=== PATIENT | female | born 1970 | race Caucasian/White ===

== ENCOUNTER → 2018-02-04 | Day surgery (SDC) | payer SELFPAY | PROVIDERS: PCP Family Medicine ==

== ENCOUNTER 2018-10-05 14:36 | Observation (INO) | payer SELFPAY ==
[2018-09-24 15:35] VITALS: BMI 29.7
[2018-10-04] VITALS (15 sets, daily range): BP systolic 78–142; BP diastolic 40–86; PULSE 60–78; RESP 8–17; TEMP 35.7–36.6; O2SAT 92–100; BMI 29.7
--- NOTE | 2018-10-04 | PATH_ITS ---
[facility] Accession Number: [id number] . 01 Material submitted: . UTERUS AND CERVIX . 02 Diagnosis: Uterus and Cervix, Hysterectomy: 1. Inactive/noncycling endometrium with no evidence of hyperplasia. 2. Cervix and myometrium with no diagnostic abnormality. 3. No evidence of neoplasia. MRV/10/06/2018 . 02 Electronically signed: . Lisa Leyva MD, Pathologist NPI- [id number] . 01 Gross description: . Received in formalin, labeled uterus and cervix, is a uterus (61 grams, 3.2 cm AP, 8.2 cm SI, 3.8 cm ML). The ovaries and fallopian tubes are absent. The cervix (2.0 cm AP, 3.2 cm ML) has a vaginal cuff (up to 1.8 cm in depth), transverse os, and patent endocervical canal. The endometrium (average thickness-0.1 cm) is arias-pink, smooth and flat. The myometrium (thickness-1.5 cm) is arias-white and unremarkable. The serosa is arias smooth and shiny. Section code: (A1) anterior cervix; (A2) posterior cervix; (A3, A4) anterior endomyometrium; (A5, A6) posterior endomyometrium. ([id number]) /MRV . 02 Pathologist provided ICD-10: N81.4 . 02 CPT . 207046 Performed at: 01 [facility] [address] [id number] MD Mekhi Jeff MD Phone: [phone] Performed at: 02 [facility] [address] [place], [place] [id number] MD Lisa Leyva MD Phone: [phone]
[2018-10-04] MEDS: LACTATED RINGERS 1,000 ML 42 ML IV (13:40)
[2018-10-04] MEDS: ONDANSETRON 4 MG/2 ML INJ IV ×2 (13:41→19:28)
[2018-10-04] MEDS: fentaNYL 100 MCG/2 ML INJ 50 MCG IV ×2 (13:41→13:46)
[2018-10-04] MEDS: SCOPOLAMINE 1 PATCH TOP (14:15)
[2018-10-04] MEDS: CEFOTETAN 2 GM/50 ML PIGGYBACK IV (15:45)
--- NOTE | 2018-10-04 16:16 | SUR.OPER ---
Lithotomy on padded OR bed, head on pillow, arms secured on padded arm boards at <90 degrees abduction. Legs secured in padded yellow fins stirrups.
[2018-10-04] MEDS: BUPIVACAINE 0.25% W/ EPI VIAL 50 ML INJ (16:26)
[2018-10-04] MEDS: BUPIVACAINE 0.5% W/ EPI (PF) VIAL 30 ML INJ (16:26)
--- NOTE | 2018-10-04 17:27 | PM.GYNOP.1 ---
Operative Date/Time/Diagnoses Date of procedure: 10/04/18 Time of procedure: 17:27 Pre-op diagnosis: Menorrhagia, uterine descensus, stress urinary incontinence Post-op diagnosis: same Procedure: Procedures Operation Date: 10/04/18 15:30 Actual Procedures Side Surgeon p Vaginal Hysterectomy with TVT Sheldon Patel MD s Tensionless Vaginal Tape-Suspension Sheldon Patel MD Indications: Menorrhagia, stress urinary incontinence, uterine descensus Surgeon: Sheldon Patel Textile Machinery Instructor: Lina Roman Anesthesia Type: General Operative Notes Findings: Normal uterus tubes and ovaries with significant uterine descensus Normal bladder Closure Type: primary Estimated blood loss (mL): 75 Blood products transfused: none Procedure in detail: The patient is placed supine upon the operating table and and anesthetized. She was then placed in the dorsal lithotomy position examined under anesthesia. The uterus came to the introitus and was average size. There are no adnexal masses. The patient was then draped and prepared in the usual fashion. A posterior weighted retractor was set in place in the anterior lip of the cervix grasped with two tooth tenaculum. Circumferential injection of 12 cc of 0.5% Marcaine and 1 to 490221 epinephrine was then performed. Sharp knife incision was then made circumferentially. Bladder was taken down sharply. Bladder was pushed in a cephalad direction using lap sponge. Perineum was picked up incise the Justin retractor was set in place. Posterior peritoneum was picked up incised and a large posterior weighted retractor was set in place. Uterus sacral ligaments were bilaterally clamped incised and suture ligated with 1. Chromic suture. These pedicles were held. The cardinal ligaments were bilaterally clamped in size and suture ligated. Uterine vessels were bilaterally clamped incised and suture ligated. 2 additional bites were taken until the tubo-ovarian rounds were reach. These pedicles were free tied and then suture ligated the pedicles were held. Ovaries and tubes appeared to be normal. The visceral peritoneum was then closed with running 1. Chromic suture. Angle sutures of 1. Chromic suture were then placed. Vaginal cuff was closed with interrupted 1. Chromic suture. The patient was taken out of the steep Trendelenburg position and in a flat position with the legs in a 45 degree angle. The table was elevated. Markings were made for the T VT. Area under urethra was injected sent Collin in 1 to [id number] epinephrine. Abdominally approximately 15 cc of 0.25% Marcaine 1 to [id number] epinephrine were injected bilaterally going past the symphysis pubis on each side in preparation for needle placement. This having been done the vagina over the urethra was dissected away. A 7. Hegar dilator was then used to start the tract for the TVT needles. Catheter stent was then used and the bladder pushed to the the right hand side. The left TVT needle was then placed in perforated the abdomen without difficulty. Bladder was then pushed to the left-hand side and then the right TVT needle was placed without incident. The cystoscope was placed the bladder expanded and there is no evidence of injury of any kind. The sheaths were then removed. After tensioning the vaginal tape and the tape was then pulled upwards and incised. The urethral incision was closed with a running two 0 Vicryl suture without difficulty. Catheterization showed clear fluid. The abdominal incisions were Steri-Stripped. Patient was taken to the recovery room in satisfactory condition. And dictated operative note Complications: none Post-operative Condition: stable Disposition: PACU Plan for aftercare: 2 floor
--- NOTE | 2018-10-04 17:34 | P.OP_ITS ---
Operative Date/Time/Diagnoses Date of procedure: 10/04/18 Time of procedure: 17:27 Pre-op diagnosis: Menorrhagia, uterine descensus, stress urinary incontinence Post-op diagnosis: same Procedure: Procedures Operation Date: 10/04/18 15:30 Actual Procedures Side Surgeon p Vaginal Hysterectomy with TVT Sheldon Patel MD s Tensionless Vaginal Tape-Suspension Sheldon Patel MD Indications: Menorrhagia, stress urinary incontinence, uterine descensus Surgeon: Sheldon Patel Computing Consultant: Lina Roman Anesthesia Type: General Operative Notes Findings: Normal uterus tubes and ovaries with significant uterine descensus Normal bladder Closure Type: primary Estimated blood loss (mL): 75 Blood products transfused: none Procedure in detail: The patient is placed supine upon the operating table and and anesthetized. She was then placed in the dorsal lithotomy position examined under anesthesia. The uterus came to the introitus and was average size. There are no adnexal masses. The patient was then draped and prepared in the usual fashion. A posterior weighted retractor was set in place in the anterior lip of the cervix grasped with two tooth tenaculum. Circumferential injection of 12 cc of 0.5% Marcaine and 1 to 661201 epinephrine was then performed. Sharp knife incision was then made circumferentially. Bladder was taken down sharply. Bladder was pushed in a cephalad direction using lap sponge. Perineum was picked up incise the Justin retractor was set in place. Posterior peritoneum was picked up incised and a large posterior weighted retractor was set in place. Uterus sacral ligaments were bilaterally clamped incised and suture ligated with 1. Chromic suture. These pedicles were held. The cardinal ligaments were bilaterally clamped in size and suture ligated. Uterine vessels were bilaterally clamped incised and suture ligated. 2 additional bites were taken until the tubo-ovarian rounds were reach. These pedicles were free tied and then suture ligated the pedicles were held. Ovaries and tubes appeared to be normal. The visceral peritoneum was then closed with running 1. Chromic suture. Angle sutures of 1. Chromic suture were then placed. Vaginal cuff was closed with interrupted 1. Chromic suture. The patient was taken out of the steep Trendelenburg position and in a flat position with the legs in a 45 degree angle. The table was elevated. Markings were made for the T VT. Area under urethra was injected sent Collin in 1 to [id number] epinephrine. Abdominally approximately 15 cc of 0.25% Marcaine 1 to 679050 epinephrine were injected bilaterally going past the symphysis pubis on each side in preparation for needle placement. This having been done the vagina over the urethra was dissected away. A 7. Hegar dilator was then used to start the tract for the TVT needles. Catheter stent was then used and the bladder pushed to the the right hand side. The left TVT needle was then placed in perforated the abdomen without difficulty. Bladder was then pushed to the left-hand side and then the right TVT needle was placed without incident. The cystoscope was placed the bladder expanded and there is no evidence of injury of any kind. The sheaths were then removed. After tensioning the vaginal tape and the tape was then pulled upwards and incised. The urethral incision was closed with a running two 0 Vicryl suture without difficulty. Catheterization showed clear fluid. The abdominal incisions were Steri-Stripped. Patient was taken to the recovery room in satisfactory condition. And dictated operative note Complications: none Post-operative Condition: stable Disposition: PACU Plan for aftercare: 2 floor
--- NOTE | 2018-10-04 17:50 | SUR.PHASEI ---
To PACU sleeping, oral airway, occasional jaw thrust. Skin warm and dry, 175 weaning O2,, resp even and regular, expiratory wheeze.
--- NOTE | 2018-10-04 18:15 | SUR.PHASEI ---
responds readily to voice, Continues to deny pain/nausea. resp even and regular, not wheezing. Preparing for transfer to ac
--- NOTE | 2018-10-04 18:39 | SUR.PHASEI ---
1813 Preparing to transfer. Skin warm and dry, stable, warm blanket given for comfort.
--- NOTE | 2018-10-04 18:41 | SUR.PHASEI ---
850 ml LR infused, unable to access MAR.
--- NOTE | 2018-10-04 18:42 | SUR.PHASEI ---
1824to room 204. Bed locked, remains elevated while AC staff is working with patient, SCDs on. VSS. Denies pain/nausea, no questions. report updated. Clothing bag to room.
[2018-10-04] MEDS: LACTATED RINGERS 1,000 ML 100 ML IV (19:08)
[2018-10-04] MEDS: METOCLOPRAMIDE 10 MG/2 ML INJ IV (21:18)
--- NOTE | 2018-10-04 22:22 | PC.NURSE ---
Post-op note: Negrita brought from PACU around 183, patient awake, conversive. Pale. VS stable, 2L O2 sat 93-98%, Pt reported feel cold, shivering when reapplied warm blanket, warmth of blanket resolved shivers. Reports no pain or nausea at time of 1st assessment. 2 small steri strips to lower abd/groin, one at left groin with scant amt of sero-sang drainage trickling out of site, applied a 2x2 drsg over steri-strip site. No bleeding on rosana-pad. IVF infusing as ordered. 1919: Pt reported need to void, has no medina. Mother asked can't she just go all the way in [place]? Teaching given about post-op side effects of anesthesia. 2 assist transfer onto BS. Pt able to void 100 ml blood-tinged red urine, also passed small flat clot. Only few spots on rosana-pad. Assist with rosana-care, pad changed. Upon getting patient back into bed she reported sudden nausea, face pale. BP 78/40 immediately after patient back into bed. Side lying for comfort with HOB at 20 degrees. IV Zofran given. 15 minutes later reports rest period & zofran relieved nausea. She is also wearing scopolamine patch behind right ear. Tolerating ice chips and sips of clears post-antiemetic. 2124: Pt sleeping mostly, now awake, pale, reports feels urge to void. Became nauseated with movement in bed, this nurse encouraged bedpan. Refused bedpan and said I am scared, telling me want to stay here a moment. IV Reglan given per orders. BP 99/65. While dozing on RA (RT turned O2 on wall off while in room to assess) oxygen desaturated to 84-87% while pt dozing. Instructed deep breathing, after 2L applied sats maintaining 99-100% again. Will leave O2 on r/t borderline BP & nausea. 2154: After rest period pt able to lay mostly flat for scan, bladder scan = 498 ml. Pt asked this nurse to wait before tries bedpan, dozing intermittently. BP 91/58. 2 steri-strip sites to bilateral lower abd/groin are both soiled with scant amt sero-sang trickling from sites. Abdomen cleaned, 4x4 drsgs applied to lap sites with small amt of tape. 2nd rosana-pad remains CDI. Call button at side & fall precautions in place.
[2018-10-05 01:12] VITALS: BP 95/55; PULSE 86; RESP 18; TEMP 37.3; O2SAT 100
[2018-10-05] MEDS: ONDANSETRON 4 MG/2 ML INJ IV (01:36)
--- NOTE | 2018-10-05 04:10 | PC.NURSE ---
Patient not currently nauseous for this shift, however requests to take anti nausea meds throughout the night. Still feels cold and clammy with some hypotension. IVF running as ordered. Patient was only able to void about 100mL of bloody urine. Bladder scan showed 784mL. Dr. Sheldon uHtton called and instructed to place an indwelling medina catheter. Medina has patent clear yellow urine draining. Tigist pad has shown moderate blood loss. Lap sites with some moderate bleeding. Reinforced with 4X4 gauze pads.
[2018-10-05] MEDS: OXYCODONE/ACETAMINOPHEN 5/325 TABLET 2 TAB PO ×4 (04:56→19:09)
[2018-10-05] MEDS: METOCLOPRAMIDE 10 MG/2 ML INJ IV (04:57)
[2018-10-05] MEDS: LACTATED RINGERS 1,000 ML 100 ML IV (04:59)
[2018-10-05 05:16] VITALS: BP 98/64; PULSE 81; RESP 15; TEMP 37; O2SAT 96
[2018-10-05 06:24] LABS: Add Manual Diff / Slide Review NO; Basophils Percent Auto 0.1 % (0-2); Hematocrit 30.5 % (36-46); Hemoglobin 9.8 g/dL (12.0-16.0); Lymphocytes Percent Auto 6.3 % (25-40); Mean Corpuscular HGB Conc 32.3 % (30-36); Mean Corpuscular Hemoglobin 25.9 PG (26-34); Monocytes Percent Auto 3.7 % (3-14); Neutrophils Absolute Auto 13900 /uL (3000-5900); Neutrophils Percent Auto 89.9 % (50-75); Platelet Count 245 X10^3/uL (150-400); Red Blood Cell Count 3.81 X10^6/uL (4.0-5.2); Red Cell Distribution Width 13.4 % (11.6-14.8); White Blood Cell Count 15.5 X10^3/uL (4.5-11.0)
[2018-10-05 07:20] VITALS: BP 98/59; PULSE 74; RESP 14; TEMP 37.1; O2SAT 95
--- NOTE | 2018-10-05 07:29 | PM.PNPO.1 ---
Subjective Date Patient Seen: 10/05/18 Time Patient Seen: 07:29 Interval history: The patient is a 48-year-old status post vaginal hysterectomy and tensionless vaginal tape urethropexy. She is doing well she has had minimal bleeding. Patient however after voiding had increasing residuals and was catheterized during the night. She has indwelling catheter now. She is otherwise doing well Exam Vital Signs (past 8 hours): - 10/05/18 01:12 10/05/18 05:16 Temperature 99.1 F 98.6 F Pulse Rate 86 81 Respiratory Rate 18 15 Blood Pressure 95/55 L 98/64 Pulse Oximetry 100 96 Oxygen Delivery Method Room Air Oxygen Flow Rate 2 Narrative Exam Narrative: examination of the abdomen shows a Steri-Strips nicely in place. There evidently was some bleeding from the puncture wounds there but there is no bleeding now and the 4x4s were removed. Patient is having no vaginal bleeding of any kind. the urine is absolutely chau Objective Labs Result Diagrams: 10/05/18 05:46 Labs: Laboratory Results - last 24 hr 10/05/18 05:46 WBC 15.5 H RBC 3.81 L Hgb 9.8 L Hct 30.5 L MCV 80.0 MCH 25.9 L MCHC 32.3 RDW 13.4 Plt Count 245 Neut % (Auto) 89.9 H Lymph % (Auto) 6.3 L [place] % (Auto) 3.7 Eos % (Auto) 0.0 L Baso % (Auto) 0.1 Neut # (Auto) 88901 H Assessment & Plan Post-op Postoperative Procedures Operation Date: 10/04/18 15:30 Actual Procedures Side Surgeon p Vaginal Hysterectomy with TVT Sheldon Patel MD s Tensionless Vaginal Tape-Suspension Sheldon Patel MD Postoperative day: 1 Postoperative status: doing well Postoperative status narrative: Doing well but needs to be able to void and good volume Postoperative plan: see orders Postoperative plan narrative: patient for voiding and residuals and will be discharged when voiding normal Time Spent With Patient less than 15 minutes Quality VTE Deep Vein Thrombosis/Pulmonary Embolism Present on Admission: No
--- NOTE | 2018-10-05 08:57 | PC.NURSE ---
Addendum entered by Sarahi Bellamy R.N. 10/05/18 14:29: 1330: Pt bladder scanned or 393 mL. Voided 225 mL. Bladder scan post void 197 mL. Reattempted and voided 150 mL. Original Note: Addendum entered by Sarahi Bellamy R.N. 10/05/18 09:38: 0930: Pt reports decreased pain. Ok with removing medina catheter at this time. Pt tolerated procedure well. Education done on restrictions post hysterectomy. Original Note: Day shift 0830: Pt sitting up in bed eating breakfast. Complains fo 3/10 pain in lower pelvic area. Pt's steri strips had dry, old blood. Medina present. Will discontinue after pain medication kicks in per patient request. Pt systolic blood pressure in lower 90s. Pt states it's normally in the 1teens. Will hold propanolol r/t BP. Educated pt on orthostatic hypotension and that we would like to check next time she gets up. at bedside asking about restrictions post surgery.
[2018-10-05 13:00] VITALS: BP 115/62; PULSE 84; RESP 15; TEMP 36.9; O2SAT 96
--- NOTE | 2018-10-05 13:15 | CM.DANOTE ---
Discharge Planning/Care Management DCP: assessment: case received and met with pt and her Bijan early this morning. Introduced self and role. Pt is a 48 year old female who admitted yesterday for a planned gynecological surgery. Surgeon: Dr. Patel Payer: [facility]. (pt confirms she had already alerted the billing dept to this prior to the surgery and payment is in process). Pt says she is hoping to go home today but needs to void first. Bijan at bedside, waiting to take her home when all is ok'd. P: likely home later today is all goes well with the voiding process. CM Discharge Assessment Start: 10/05/18 13:13 Freq: Status: Active Protocol: Document 10/05/18 13:13 ITV (Rec: 10/05/18 13:14 ITV [id number]) Discharge Planning Assessment Advance Directives? No History Provided By Patient Family Member Medical Record Prior Living Arrangements House Household Members spouse Independent with ADL's Yes Is patient alert and oriented? Yes Whiteboard Updated in Patient Room with Yes name and ext. # of Blueprinting And Photocopy Supervisor Review Status In Process Next Review Type Continued Stay Review Pre-Anesthesia Assessment Start: 09/24/18 15:35 Freq: Status: Active Protocol: Document 09/24/18 15:35 VLJ (Rec: 09/24/18 15:56 VLJ [id number]) Pre-Anesthesia Assessment Patient Information Reviewed Via Chart Review H&P Completed Within 30 Days No Primary Care Provider Gerri Jesus Seen Specialist in Last 12 Months Yes Specialist Seen Cruise Director Height 160.02 cm Weight 76.204 kg Body Mass Index (BMI) 29.7 Anesthesia Review Requested No It Application Support Analyst No Smoking Status Never smoker Bladder Pattern Incontinent, Stress Marital Status Comment Lives on [facility]
[2018-10-05 15:49] VITALS: BP 102/61; PULSE 84; RESP 15; TEMP 37; O2SAT 96
--- NOTE | 2018-10-05 17:14 | P.DS_ITS ---
History of Present Illness Date Patient Seen: 10/05/18 Time Patient Seen: 17:11 Chief complaint: *OPB* [id number] Narrative: The patient is a 48-year-old four para four with uterine descensus menorrhagia and stress urinary incontinence. Discharge Providers Date of admission: 10/05/18 14:36 Primary care physician: Gerri Jesus MD Discharge provider: Sheldon Patel MD Discharge Date: 10/05/18 Summary Discharge Diagnosis: Menorrhagia Uterine descensus Stress urinary incontinence Hospital Course: Patient is a 48-year-old four para four who was admitted to the hospital for vaginal hysterectomy and attention was vaginal tape urethropexy. These operations performed on 28/04 without incident. Post hysterectomy patient had some problems and voiding began to void good volumes. She was discharged home for follow-up in two weeks. Status at Discharge Cognitive/behavioral status at discharge: Normal Functional status at discharge: independent ambulation Overall status at discharge: patient is back to baseline Time Spent with Patient Less than 30 minutes Exam Vital Signs (past 8 hours): - 10/05/18 13:00 10/05/18 15:49 Temperature 98.5 F 98.6 F Pulse Rate 84 84 Respiratory Rate 15 15 Blood Pressure 115/62 102/61 Pulse Oximetry 96 96 Oxygen Delivery Method Room Air Oxygen Flow Rate 0 Narrative Exam Narrative: Abdomen looks fine. DVT puncture hernandez are not bleeding. Vaginal draining is scant Objective Labs Result Diagrams: 10/05/18 05:46 Labs: Laboratory Results - last 24 hr 10/05/18 05:46 WBC 15.5 H RBC 3.81 L Hgb 9.8 L Hct 30.5 L MCV 80.0 MCH 25.9 L MCHC 32.3 RDW 13.4 Plt Count 245 Neut % (Auto) 89.9 H Lymph % (Auto) 6.3 L [place] % (Auto) 3.7 Eos % (Auto) 0.0 L Baso % (Auto) 0.1 Neut # (Auto) 77175 H Discharge Plan Discharge Plan Patient Disposition: Home Discharge Med Rec/Prescriptions Prescriptions: New oxycodone 5 mg tablet 5 mg PO Q4-6H PRN (Reason: pain) Qty: 30 RF: 0 Continue [IMITREX] 1 tab PO PRN MIGRAINE Qty: 0 RF: 0 propranolol 40 MG tablet 40 mg PO QDAY Qty: 0 RF: 0 Follow up/Referrals: Gerri Jesus MD [Primary Care Provider] - Provider Discharge Instructions Diet: Diet as Tolerated Activity: no lifting/ minimize stairs Skin/Wound/Dressing Care Report to your healthcare provider any signs of infection, such as:: chills, fever, increased pain and unusual drainage Visit Report/Discharge Packet Instructions: Sex After a Hysterectomy: Never Better, DI for Hysterectomy, DI for Vaginal Hysterectomy Discharge Data Primary Care Provider: Gerri Jesus Attending Provider: Sheldon Patel Admit Date/Time: 10/05/18 14:36 Quality VTE Deep Vein Thrombosis/Pulmonary Embolism Present on Admission: No
--- NOTE | 2018-10-05 19:18 | PC.NURSE ---
Addendum entered by Suze Grimm R.N. 10/05/18 20:20: Patient wheeled to ER entrance via wheelchair, all belongings & dc paperwork with her. Original Note: DC notes: Negrita denies further nausea, VS stable. RA oxygen high 90's. At 1700 had void of 280 ml with post void residual PVR scan of 374. Dr Patel notified. Said to have patient try again & came up to floor shortly after to assess patient. Pt able to void 2nd time 225 ml with PVR scan of 242, Dr khan, wrote DC orders. All DC teaching given as well as Rx for Percocet and Priority Boarding pass for [place] [employer]. [place] to [place] 8:25 pm ferry [place]. Spouse left to machine pecan picker prescription. Patient reports pain 2 or 3, medicated now with 1 tab Percocet. IV to RAC removed, pressure drsg applied. 2 lap sites to lower abd have old dry blood on them but otherwise intact, instructed her to leave steri-strips on until they fall off. Teaching given regarding hydration, avoidance of constipation/straining, aware to follow up with physician on [facility] per Dr Patel DC order & to call office to make appt. Pt in room dressing self with help from spouse. All DC paperwork and DC instructions placed in patient folder to go with them.
== END 2018-10-05 20:00 | disposition home or self-care (01) ==
LOC: OR 15:08
PROVIDERS: PCP Family Medicine
PROC: (CPT 58260; principal; 2018-10-04 15:30)
PROC: 0TSD0ZZ Reposition Urethra, Open Approach (ICD-10-PCS; CPT 58260; 2018-10-04 15:30)
DX: N81.2 Incomplete uterovaginal prolapse (principal); N92.0 Excessive and frequent menstruation with regular cycle; N39.3 Stress incontinence (female) (male); G43.909 Migraine, unspecified, not intractable, without status migrainosus
CPT/HCPCS: 58260; 57288; 36415; 85025; G0378; J1100; J1885; J2250; J2405; J2704; J2765; J3010

== ENCOUNTER → 2022-09-23 10:43 | Outpatient (CLI) | payer SELFPAY ==
[2018-10-04 13:19] VITALS: BMI 29.7
[2022-09-23 13:18] LABS: TSH w/ Reflex to FT4 0.77 uIU/mL (0.47-4.68)
[2022-09-23 16:24] LABS: Progesterone, Total 0.26 ng/mL
[2022-09-23 16:40] LABS: Estradiol, Total 15.4 pg/mL
== END ==
PROVIDERS: PCP Family Medicine; Referring Provider Physician Assistant Medical; Visit Provider Physician Assistant Medical
DX: N95.1 Menopausal and female climacteric states (principal); R45.4 Irritability and anger
CPT/HCPCS: 36415; 82670; 84144; 84443